=== PATIENT | male | born 1945 | race Caucasian/White ===

== ENCOUNTER → 2017-02-16 | Outpatient (CLI) | payer BC ==
[~2017-02-16] VITALS: Ht 160 cm; Wt 92.0 kg
[~2017-02-16] MED LIST: ASPIR 8181 M1 PO; CARDIZEM120 MG PO; METOPROLOL TAR100 MG PO; NEURONTIN100 MG PO; OXYBUTYNIN CHLOR5 MG PO; PRADAXA150 MG PO; PREVACID30 MG PO; VITAMIN B12-FO1 EACH PO; VITAMIN D2000 UNI1 PO
[2017-02-16 16:39] VITALS: BP 168/78
== END | disposition home or self-care (01) ==
LOC: IVINF 02-10 07:00
DX: M81.0 Age-related osteoporosis without current pathological fracture (principal)
CPT/HCPCS: 96365; J3489

== ENCOUNTER 2017-05-13 00:09 | Emergency (ER) | payer BC ==
[~2017-05-13] VITALS: Ht 185.4 cm; Wt 98.1 kg
[2017-05-13 01:59] LABS: EOSINOPHIL (%) 1.3 % (0-5); EOSINOPHIL COUNT 0.1 K/uL (0-0.3); HEMATOCRIT 37.9 % (38.0-50.0); IMMATURE GRANULOCYTE (%) 0.9 % (0.0-0.7); IMMATURE GRANULOCYTE COUNT 0.1 K/uL; INSTRUMENT ABS NEUTROPHIL CT 4.9 K/uL; LYMPHOCYTE COUNT 1.2 K/uL (1.0-2.8); MCH 34.4 PG (29.0-34.0); MCHC 35.4 G/DL (30.0-36.0); MCV 97.4 FL (86-99); MEAN PLAT.VOLUME 8.7 uM^3 (9.0-12.4); MONOCYTE (%) 9.8 % (3-12); MONOCYTE COUNT 0.7 K/uL (0-0.8); NEUTROPHIL (%) 70.4 % (45-76); NEUTROPHIL COUNT 4.9 K/uL (1.8-6.4); PLATELET COUNT 165 K/uL (156-360); RBC DIS.WIDTH-CV 11.7 % (11.8-14.6); RBC DIS.WIDTH-SD 41.4 % (39-53); RED BLOOD COUNT 3.89 M/uL (4.00-5.50)
[2017-05-13 02:04] LABS: INTER. NORMALIZED RATIO 1.1; PROTHROMBIN TIME 12.1 SEC (10.2-12.9)
[2017-05-13 02:07] LABS: PTT 35.8 SEC (25-37)
[2017-05-13 02:15] LABS: CHLORIDE 95 mEq/L (99-109); SODIUM 129 mEq/L (136-147)
[2017-05-13 02:18] LABS: GLUCOSE 101 mg/dL (70-99)
[2017-05-13 02:19] LABS: ANION GAP 10 MEQ/L (2-14)
[2017-05-13 02:21] LABS: ALKALINE PHOSPHATASE 69 IU/L (3-129); SERUM ETHYL ALCOHOL 155 mg/dL
[2017-05-13 02:22] LABS: GFR ESTIMATE (CALCULATED) > 59 mL/min/
[2017-05-13 02:23] LABS: UREA NITROGEN (BUN) 8 mg/dL (9-23)
[2017-05-13 02:56] LABS: TROP-I INTERPRETATION NEGATIVE; TROPONIN-I < 0.01 ng/mL (0.0-0.30)
[2017-05-13 06:05] VITALS: BP 148/74
== END 2017-05-13 06:07 | disposition short-term general hospital (02) ==
LOC: EME 00:09
PROVIDERS: Emergency Medicine
PROC: 2W3LXYZ Immobilization of Right Lower Extremity using Other Device (ICD-10-PCS; principal; 2017-05-13)
DX: S82.831A Other fracture of upper and lower end of right fibula, initial encounter for closed fracture (principal); S82.101A Unspecified fracture of upper end of right tibia, initial encounter for closed fracture; W10.9XXA Fall (on) (from) unspecified stairs and steps, initial encounter; M81.0 Age-related osteoporosis without current pathological fracture; I48.91 Unspecified atrial fibrillation; Z79.01 Long term (current) use of anticoagulants; Z95.5 Presence of coronary angioplasty implant and graft; F17.200 Nicotine dependence, unspecified, uncomplicated
CPT/HCPCS: 71010; 73560; 73590; 73700; 80053; 84484; 85025; 85610; 85730; 86900; 86901; 93005; 99281; 99285; G0480; J2405; J3010; J7030

== ENCOUNTER → 2018-03-15 | Outpatient (CLI) | payer BC ==
[~2018-03-15] VITALS: Ht 190.5 cm; Wt 84.0 kg
== END | disposition home or self-care (01) ==
LOC: IVINF 16:39
DX: M81.0 Age-related osteoporosis without current pathological fracture (principal); Z87.19 Personal history of other diseases of the digestive system
CPT/HCPCS: 96365; J3489